=== PATIENT | male | born 1980 | race Native Hawaiian/Other Pacific Islander ===

== ENCOUNTER 2019-01-31 00:22 | Emergency (ER) | payer OTHER ==
[~2019-01-31] VITALS: Ht 177.8 cm; Wt 99.0 kg
[~2019-01-31 00:22] MED LIST: AMOX875T2 PO; IBUP-1986 PO
[2019-01-31] MEDS ORDERED: acetaminophen 325mg tablet PO ONE (00:40)
[2019-01-31] MEDS ORDERED: ketorolac trometh. 30mg/ml inj. IV ONE (00:40)
[2019-01-31] MEDS ORDERED: normal saline 1000ML IV soln IV ONE (00:45)
[2019-01-31] MEDS ORDERED: ondansetron/PF 4mg/2ml inj IV ONE (01:05)
[2019-01-31] MEDS ORDERED: normal saline 1000ML IV soln IVB ONE (01:05)
[2019-01-31 01:14] LABS: ALANINE AMINOTRANSFERASE 56 U/L (12-78); ALBUMIN 3.8 G/DL (3.4-5.0); ALBUMIN/GLOBULIN RATIO 0.8 (1.1-1.5); ALKALINE PHOSPHATASE 103 IU/L (46-116); ANION GAP 13 (8-16); ASPARTATE AMINO TRANSFERASE 46 U/L (10-37); BILIRUBIN,TOTAL 0.7 MG/DL (0.1-1.0); BLOOD UREA NITROGEN 11 MG/DL (7-18); BUN/CREATININE RATIO 7.2 (5.4-32.0); CALCIUM 8.8 MG/DL (8.5-10.1); CHLORIDE 101 MMOL/L (99-107); CREATININE 1.52 MG/DL (0.60-1.10); GLUCOSE 118 MG/DL (70-104); POTASSIUM 3.2 MMOL/L (3.5-5.1); SODIUM 136 MMOL/L (135-145); TOTAL CARBON DIOXIDE 21.8 MMOL/L (24-32); TOTAL PROTEIN 8.3 G/DL (6.4-8.2); eGFR 51 ML/MIN
[2019-01-31 01:18] LABS: PARTIAL THROMBOPLASTIN TIME 34 SECONDS (22-32)
[2019-01-31 01:20] LABS: BASOPHILS # (AUTO) 0.1 X10'3 (0-0.2); BASOPHILS % (AUTO) 0.5 % (0-1); EOSINOPHILS % (AUTO) 0 % (0-6); HEMATOCRIT 53.1 % (42.0-52.0); LYMPHOCYTES # (AUTO) 0.8 X10'3 (1.1-4.8); MEAN CORPUSCULAR HEMOGLOBIN 32.1 PG (27.0-31.0); MEAN CORPUSCULAR HGB CONC 34.7 g/dL (33.0-36.5); MEAN CORPUSCULAR VOLUME 92.7 FL (78-98); MEAN PLATELET VOLUME 8.8 FL (7.4-10.4); MONOCYTES # (AUTO) 1.1 X10'3 (0-0.9); MONOCYTES % (AUTO) 9.1 % (2-12); NEUTROPHILS # (AUTO) 10.1 X10'3 (1.8-7.7); NEUTROPHILS % (AUTO) 83.4 % (42-75); PLATELET COUNT 143 X10'3 (140-440); RED BLOOD COUNT 5.73 X10'6 (4.70-6.10); RED CELL DISTRIBUTION WIDTH 13.2 % (11.5-14.5); WHITE BLOOD COUNT 12.1 X10'3 (4.5-11.0)
[2019-01-31 01:31] LABS: HEMOGLOBIN 18.4 g/dl (14.0-17.9)
[2019-01-31] MEDS ORDERED: potassium Cl 20 mEq SR tablet PO STA (02:12)
[2019-01-31 02:34] LABS: GLUCOSE, URINE NEGATIVE (Neg); KETONES,URINE 40 mg/dl (Neg); LEUKOCYTE ESTERASE ,URINE NEGATIVE (Neg); NITRITES, URINE NEGATIVE (Neg); OCCULT BLOOD,URINE LARGE (Neg); PROTEIN,URINE 100 mg/dl (Neg)
[2019-01-31 02:39] LABS: CLARITY,URINE SLIGHTLY CLOUDY (Clear); COLOR,URINE DARK YELLOW (Yellow); UA COLLECTION TYPE VOIDED
[2019-01-31 02:41] LABS: HYALINE CASTS 0-3 /LPF (NEGATIVE)
[2019-01-31 02:42] LABS: RBC,URINE 20-50 /HPF (0-2)
[2019-01-31 02:43] LABS: AMORPHOUS URATES 1+; BACTERIA,URINE NONE SEEN /HPF (Neg); FINE GRANULAR CAST 0-3 /LPF (NEGATIVE); MUCUS STRANDS MODERATE /LPF (Neg); WBC,URINE 0-4 /HPF (0-4)
[2019-01-31 02:44] LABS: SQUAMOUS EPITHELIAL CELL,UR FEW /LPF (FEW); TRANSITIONAL EPI CELLS,URINE FEW /HPF
[2019-01-31] MEDS ORDERED: LEVO750T21 PO (02:50)
[2019-01-31 03:11] VITALS: BP 133/88
== END 2019-01-31 03:26 | disposition home or self-care (01) ==
LOC: ER 00:23
DX: J18.9 Pneumonia, unspecified organism (principal); E87.6 Hypokalemia; R79.1 Abnormal coagulation profile; Z87.442 Personal history of urinary calculi; Z79.899 Other long term (current) drug therapy
CPT/HCPCS: 36415; 71045; 80053; 81001; 83605; 84145; 85025; 85610; 85730; 87040; 87502; 87503; 96361; 96374; 96375; 99284; J1885; J2405; J7030

== ENCOUNTER 2021-01-31 12:40 | Emergency (ER) | payer BC ==
[~2021-01-31] VITALS: Ht 177.8 cm; Wt 106.6 kg
[2021-01-31] MEDS ORDERED: normal saline 1000ML IV soln IVB ONE (13:25)
[2021-01-31] MEDS ORDERED: morphine 4 MG/ML inj SYRINge IV ONE (13:30)
[2021-01-31] MEDS ORDERED: ketorolac trometh. 30mg/ml inj. IV ONE (13:30)
[2021-01-31] MEDS ORDERED: tamsulosin 0.4mg capsule PO ONE (13:35)
[2021-01-31 13:46] LABS: BASOPHILS % (AUTO) 0.3 % (0-1); EOSINOPHILS % (AUTO) 0.1 % (0-6); HEMATOCRIT 54.1 % (42.0-52.0); LYMPHOCYTES # (AUTO) 1.9 X10'3 (1.1-4.8); LYMPHOCYTES % (AUTO) 12.2 % (21-51); MEAN CORPUSCULAR HEMOGLOBIN 32.5 PG (27.0-31.0); MEAN CORPUSCULAR HGB CONC 33.9 g/dL (33.0-36.5); MEAN CORPUSCULAR VOLUME 95.7 FL (78-98); MEAN PLATELET VOLUME 7.9 FL (7.4-10.4); MONOCYTES # (AUTO) 1.6 X10'3 (0-0.9); MONOCYTES % (AUTO) 9.9 % (2-12); NEUTROPHILS # (AUTO) 12.2 X10'3 (1.8-7.7); NEUTROPHILS % (AUTO) 77.5 % (42-75); PLATELET COUNT 235 X10'3 (140-440); RED BLOOD COUNT 5.65 X10'6 (4.70-6.10); RED CELL DISTRIBUTION WIDTH 13.8 % (11.5-14.5); WHITE BLOOD COUNT 15.7 X10'3 (4.5-11.0)
[2021-01-31 13:52] LABS: ALANINE AMINOTRANSFERASE 52 U/L (12-78); ALBUMIN 4.3 G/DL (3.4-5.0); ALBUMIN/GLOBULIN RATIO 1.1 (1.1-1.5); ALKALINE PHOSPHATASE 101 IU/L (46-116); ANION GAP 13 (8-16); ASPARTATE AMINO TRANSFERASE 17 U/L (10-37); BILIRUBIN,TOTAL 1.4 MG/DL (0.1-1.0); BLOOD UREA NITROGEN 16 MG/DL (7-18); BUN/CREATININE RATIO 8.3 (5.4-32.0); CALCIUM 9.2 MG/DL (8.5-10.1); CHLORIDE 105 MMOL/L (99-107); CREATININE 1.92 MG/DL (0.60-1.10); GLUCOSE 118 MG/DL (70-104); POTASSIUM 4.1 MMOL/L (3.5-5.1); SODIUM 141 MMOL/L (135-145); TOTAL CARBON DIOXIDE 22.9 MMOL/L (24-32); TOTAL PROTEIN 8.1 G/DL (6.4-8.2); eGFR 39 ML/MIN
[2021-01-31 13:58] LABS: HEMOGLOBIN 18.3 g/dl (14.0-17.9)
[2021-01-31 14:01] LABS: COLOR,URINE YELLOW (Yellow); GLUCOSE, URINE NEGATIVE (Neg); KETONES,URINE 15 mg/dl (Neg); LEUKOCYTE ESTERASE ,URINE NEGATIVE (Neg); NITRITES, URINE NEGATIVE (Neg); OCCULT BLOOD,URINE LARGE (Neg); PH,URINE 5.5 (4.8-8.0); PROTEIN,URINE TRACE mg/dl (Neg); UROBILINOGEN,URINE 0.2 E.U/dL (0.2-1.0)
[2021-01-31 14:06] LABS: CLARITY,URINE SLIGHTLY CLOUDY (Clear); UA COLLECTION TYPE CLN CATCH MIDSTREAM
[2021-01-31 14:07] LABS: BACTERIA,URINE NONE SEEN /HPF (Neg); HYALINE CASTS 0-3 /LPF (NEGATIVE); SQUAMOUS EPITHELIAL CELL,UR NONE SEEN /LPF (FEW); WBC,URINE NONE SEEN /HPF (0-4)
[2021-01-31] MEDS ORDERED: ONDA4TAB6 PO (15:48)
[2021-01-31] MEDS ORDERED: FLO0.4C PO (15:48)
[2021-01-31] MEDS ORDERED: NAPR-56 PO (15:48)
[2021-01-31] MEDS ORDERED: OXYC-145 PO (15:48)
[2021-01-31] MEDS ORDERED: proCHLORperazine 10 MG/2 ml inj IV ONE (15:50)
[2021-01-31] MEDS ORDERED: oxyCODONE/APAP 10/325mg tablet PO ONE (15:50)
[2021-01-31 16:10] VITALS: BP 137/59
== END 2021-01-31 16:09 | disposition home or self-care (01) ==
LOC: ER 12:41
DX: N20.0 Calculus of kidney (principal); R10.32 Left lower quadrant pain; M10.9 Gout, unspecified; Z87.442 Personal history of urinary calculi; Z72.89 Other problems related to lifestyle; Z79.2 Long term (current) use of antibiotics; Z79.899 Other long term (current) drug therapy
CPT/HCPCS: 36415; 74176; 80053; 81001; 85025; 96374; 96375; 99284; J0780; J1885; J2270; J7030

== ENCOUNTER 2022-02-05 17:58 | Emergency (ER) | payer SELFPAY ==
[~2022-02-05] VITALS: Ht 175.3 cm; Wt 105.5 kg
[~2022-02-05 17:58] MED LIST changes: +ONDA4TAB6 PO; +OXYC-145 PO
[2022-02-05 18:40] LABS: CLARITY,URINE CLEAR (Clear); COLOR,URINE YELLOW (Yellow); GLUCOSE, URINE NEGATIVE (Neg); KETONES,URINE >=80 mg/dl (Neg); LEUKOCYTE ESTERASE ,URINE NEGATIVE (Neg); NITRITES, URINE NEGATIVE (Neg); OCCULT BLOOD,URINE MODERATE (Neg); PROTEIN,URINE TRACE mg/dl (Neg); UROBILINOGEN,URINE 0.2 E.U/dL (0.2-1.0)
[2022-02-05 18:45] LABS: UA COLLECTION TYPE NON-SPECIFIED
[2022-02-05 18:46] LABS: BASOPHILS # (AUTO) 0.1 X10'3 (0-0.2); BASOPHILS % (AUTO) 0.3 % (0-1); EOSINOPHILS % (AUTO) 0.2 % (0-6); HEMATOCRIT 53.6 % (42.0-52.0); LYMPHOCYTES # (AUTO) 1.7 X10'3 (1.1-4.8); LYMPHOCYTES % (AUTO) 9.1 % (21-51); MEAN CORPUSCULAR HEMOGLOBIN 31.6 PG (27.0-31.0); MEAN CORPUSCULAR HGB CONC 33.8 g/dL (33.0-36.5); MEAN CORPUSCULAR VOLUME 93.7 FL (78-98); MEAN PLATELET VOLUME 8.2 FL (7.4-10.4); MONOCYTES # (AUTO) 1.5 X10'3 (0-0.9); MONOCYTES % (AUTO) 8.1 % (2-12); NEUTROPHILS # (AUTO) 15.2 X10'3 (1.8-7.7); NEUTROPHILS % (AUTO) 82.3 % (42-75); PLATELET COUNT 238 X10'3 (140-440); RED BLOOD COUNT 5.72 X10'6 (4.70-6.10); RED CELL DISTRIBUTION WIDTH 13.8 % (11.5-14.5); WHITE BLOOD COUNT 18.5 X10'3 (4.5-11.0)
[2022-02-05 18:47] LABS: BACTERIA,URINE NONE SEEN /HPF (Neg); RBC,URINE 0-2 /HPF (0-2); SQUAMOUS EPITHELIAL CELL,UR FEW /LPF (FEW); WBC,URINE NONE SEEN /HPF (0-4)
[2022-02-05 18:55] LABS: ALANINE AMINOTRANSFERASE 25 U/L (12-78); ALBUMIN 4.1 G/DL (3.4-5.0); ALKALINE PHOSPHATASE 78 IU/L (46-116); ANION GAP 16 (8-16); ASPARTATE AMINO TRANSFERASE 15 U/L (10-37); BILIRUBIN,TOTAL 1.6 MG/DL (0.1-1.0); BLOOD UREA NITROGEN 18 MG/DL (7-18); BUN/CREATININE RATIO 9.7 (5.4-32.0); CALCIUM 9.2 MG/DL (8.5-10.1); CHLORIDE 99 MMOL/L (99-107); CREATININE 1.86 MG/DL (0.60-1.10); GLUCOSE 99 MG/DL (70-104); HEMOGLOBIN 18.1 g/dl (14.0-17.9); LIPASE 64 U/L (73-393); POTASSIUM 3.7 MMOL/L (3.5-5.1); SODIUM 137 MMOL/L (135-145); TOTAL CARBON DIOXIDE 22.1 MMOL/L (24-32); TOTAL PROTEIN 8.2 G/DL (6.4-8.2); eGFR 40 ML/MIN
[2022-02-05] MEDS ORDERED: morphine 4 MG/ML inj SYRINge IV ONE (19:15)
[2022-02-05] MEDS ORDERED: pantoprazole 40 MG vial IV ONE (19:15)
[2022-02-05] MEDS ORDERED: normal saline 1000ML IV soln IVB ONE (19:15)
[2022-02-05] MEDS ORDERED: ondansetron/PF 4mg/2ml inj IV ONE (19:15)
[2022-02-05] MEDS ORDERED: pantoprazole 40MG/NS 100ML BAG 100 ML IV ONE (19:30)
[2022-02-05] MEDS ORDERED: tamsulosin 0.4mg capsule PO SCH (21:35)
[2022-02-05] MEDS ORDERED: ketorolac tromethamine 15mg/ml inj. IV ONE (21:35)
[2022-02-05] MEDS ORDERED: ONDA8TAB13 PO (21:49)
[2022-02-05] MEDS ORDERED: FLO0.4C PO (21:49)
[2022-02-05] MEDS ORDERED: HYDR-3965 PO (21:49)
[2022-02-05 22:29] VITALS: BP 128/82
== END 2022-02-05 22:32 | disposition home or self-care (01) ==
LOC: ER 17:59
DX: N20.0 Calculus of kidney (principal); Z87.442 Personal history of urinary calculi; F12.10 Cannabis abuse, uncomplicated; Z79.899 Other long term (current) drug therapy
CPT/HCPCS: 36415; 74176; 76770; 80053; 81001; 83690; 85025; 96361; 96374; 96375; 99285; J1885; J2270; J2405; J7030; C9113

== ENCOUNTER 2025-04-27 11:58 | Emergency (ER) | payer SELFPAY ==
[~2025-04-27] VITALS: Ht 175.3 cm; Wt 100.0 kg
[~2025-04-27 11:58] MED LIST changes: +ONDA-245 PO
[2025-04-27 12:04] VITALS: TEMP 98.7
--- NOTE | 2025-04-27 13:18 | RADIOLOGY REPORT ---
Chest x-ray Technique: PA and lateral views CLINICAL INDICATION: Cough and fever FINDINGS: Heart size is normal. No infiltrates or effusions. No bony thoracic abnormalities. IMPRESSION: 1. Normal chest x-ray.
[2025-04-27] MEDS ORDERED: ALBU8HFA PO (14:17)
[2025-04-27] MEDS ORDERED: GUAI200T5 PO (14:17)
--- NOTE | 2025-04-27 14:17 | Physician Documentation ---
History of Present Illness ~ Chief Complaint: Cold, cough & congestion Stated Complaint: CHEST CONGESTION Time Seen by MD: 12:57 Primary Medical Doctor: NONE Mode of Arrival: POV HPI This is a 44-year-old male who presents with one-week of productive cough, body aches, and fever. Patient reports no sick contacts. Patient reports no other acute symptoms or concerns patient Medication Reconciliation Allergies: Coded Allergies: No Known Allergies (Unverified , 04/27/25) Scheduled Amoxicillin (Amoxicillin), 1 TAB PO BID Guaifenesin (Guaifenesin), 1 TAB PO Q8H Ondansetron Hcl (Zofran), 1 TAB PO Q6H Scheduled PRN Ibuprofen (Ibuprofen), 1 TAB PO Q8H PRN for pain Ondansetron 8mg ODT (Ondansetron Odt), 1 TAB PO TID PRN for nausea/vomiting Oxycodone HCl/Acetaminophen (Percocet 5-325 mg Tablet), 1 TAB PO TID PRN PRN for pain albuterol inhaler (Pro-Air Inhaler), 1-2 PUFFS PO Q4H PRN for shortness of breath Past Medical History Past Medical History: Kidney Stones, Gout Past Surgical History: no surgical history Alcohol Use: Heavy Drug Use: marijuana Lives with: Family Lives In: Home Occupation: employed Review of Systems ROS As stated above in the HPI, otherwise all systems are reviewed and negative. Physical Exam Vital Signs: Temperature: 98.7, Source: Temporal, Heart Rate: 97, Respiratory Rate: 18, BP: 161/100, Pulse Oximetry: 97, Weight: 100.000 Oxygen Flow Rate: 0 Physical Exam VITALS: Reviewed and as above. GENERAL: Alert, nontoxic appearing, no apparent distress. RESPIRATORY: No increased work of breathing, no respiratory distress, speaking in full clear sentences, scattered faint rhonchi and wheezes in all lung mark CV: Regular rate rhythm no murmur Progress Results/Orders Results/Orders Orders - ELIZABTEH FAGAN Chest,Two Views (04/27/25 13:09) Completed Orders - ELIZABETH FAGAN Acetaminophen 325mg Tablet (Tylenol Tabl (04/27/25 13:05) Chest,Two Views (04/27/25 13:09) Dexamethasone Inj (Decadron 10mg/Ml Inj) (04/27/25 14:17) Medications Received in ER Medications (Trade) Dose Ordered Sig/Zahraa Route PRN Reason Start Time Stop Time Status Last Admin Dose Admin (Tylenol tablet) 650 mg ONCE ONCE PO 04/27/25 13:05 04/27/25 13:06 DC 04/27/25 13:25 650 MG (Decadron 10mg/ ml inj) 10 mg ONCE STAT PO 04/27/25 14:17 04/27/25 14:18 DC 04/27/25 14:47 10 MG Vital Signs 04/27/25 04/27/25 04/27/25 04/27/25 12:04 12:29 12:29 14:52 Temp 98.7 Pulse 96 97 102 Resp 18 18 17 B/P (MAP) 169/110 161/100 (120) 130/98 Pulse Ox 99 97 94 O2 Flow Rate 0 0 Laboratory Tests Test 04/27/25 12:05 SARS-CoV-2 Antigen (Rapid) Negative EKG/XRAY/CT/US/VASC/MRI Chest X-Ray : Additional Comments Exam: CHEST,TWO VIEWS Chest x-ray Technique: PA and lateral views CLINICAL INDICATION: Cough and fever FINDINGS: Heart size is normal. No infiltrates or effusions. No bony thoracic abnormalities. IMPRESSION: 1. Normal chest x-ray. Electronically Signed by:ROOSEVELT MEYERS MD Date & Time: 04/27/25 1316 Dictated by: ROOSEVELT MEYERS MD Dictation date and time: 04/27/25 1307 I have reviewed and agree with the radiology report. I have reviewed and interpreted the imaging as: No focal consolidation or pneumothorax Medical Decision Making Findings This 44-year-old male presented with cough, body aches, and fever. Physical exam demonstrated faint scattered rhonchi and wheezes, chest x-ray did not demonstrate evidence of pneumonia, I suspect bronchitis likely of viral origin based on symptoms and duration. Patient is otherwise well-appearing stable vital signs, including no evidence of hypoxia, and appropriate for outpatient follow up. Patient discharged with home care instructions, follow up instructions, and return to care precautions which he verbalized understanding of. Differential Dx:Considerations: Include: Allergic rhinitis, Influenza, Pneumonia, Pnuemonitis, Sinusitis, URI Departure Time of Disposition: 14:17 Disposition: 01 HOME / SELF CARE / HOMELESS Impression: Primary Impression: Acute bronchitis Qualified Codes: J20.9 - Acute bronchitis, unspecified Condition: Improved Discharge Instructions: Acute Bronchitis, Adult Additional Instructions: This appears to be bronchitis, most likely from viral infection. Please use the prescribed guaifenesin to help clear mucous, take this medication with plenty of water and stay well hydrated generally. You may use the prescribed inhaler as needed for shortness of breath or wheezing. Please follow up with your primary care provider in the next few days. Please return to the emergency department for any new or worsening concerning symptoms. Referrals: NO PRIMARY CARE PROVIDER (PCP) Prescriptions albuterol inhaler (Pro-Air Inhaler) 8.5 Gm Inhaler 1-2 PUFFS PO Q4H PRN for shortness of breath, #1 INH Prov: ELIZABETH FAGAN 04/27/25 Guaifenesin (Guaifenesin) 200 Mg Tablet 1 TAB PO Q8H for 10 Days, #20 TAB 0 Refills Prov: ELIZABETH FAGAN 04/27/25 Education Educated: Patient Educated regarding: diagnosis, treatment, prognosis, need for follow up Signature Scribe Signature: No scribe Attestation: The note accurately reflects work and decisions made by me.JOVANY Jenkins 04/27/25 20:20 ELIZABETH FAGAN Apr 27, 2025 14:17
[2025-04-27] MEDS: dexamethasone sod phosphate 10mg/ml inj PO STA (14:47)
[2025-04-27 14:52] VITALS: BP 130/98; PULSE 102; RESP 17; O2SAT 94
== END 2025-04-27 14:55 | disposition home or self-care (01) ==
LOC: ER 11:59
DX: J20.9 Acute bronchitis, unspecified (principal); Z20.822 Contact with and (suspected) exposure to COVID-19
CPT/HCPCS: 36415; 71046; 87811; 99284; J1100